=== PATIENT | female | born 1960 ===

== ENCOUNTER 2018-01-09 22:16 | Emergency (ER) | payer MEDICARE, OTHER ==
[2018-01-09 22:23] VITALS: RESP 18; O2SAT 95
--- NOTE | 2018-01-10 00:28 | ED PDOC ---
HPI: Psych/Substance Abuse Time Seen by Provider: 01/09/18 22:19 Chief Complaint (Nursing): Psychiatric Evaluation Chief Complaint (Provider): Psychiatric Evaluation History Per: Patient, EMS History/Exam Limitations: no limitations Onset/Duration Of Symptoms: Days (x1) Current Symptoms Are (Timing): Still Present Additional Complaint(s): 57 y/o female with a past medical history of bipolar disorder, who presents to the ED for a crisis evaluation. Patient is currently a resident at [facility] and had a day pass. Per EMS, family reported she refused to return to [facility], prompting them to call 911. Upon arrival to ED, patient insists she doesn't live at [facility]. Patient also insisting that the person who called 911 claims to be her son and is not. Patient displaying disorganized thought process and appears paranoid. Claims she is compliant with psychiatric medication. Psychiatrist: Dr. Chavarria PMD: Dr. Arora Past Medical History Reviewed: Historical Data, Nursing Documentation, Vital Signs Vital Signs: Last Vital Signs Temp 98.1 F 01/09/18 22:20 Pulse 98 H 01/09/18 22:49 Resp 18 01/09/18 22:20 BP 143/89 01/09/18 22:20 Pulse Ox 95 01/09/18 22:20 - Medical History PMH: Bipolar Disorder, Hypercholesterolemia, Osteoporosis, Schizophrenia Denies: Diabetes, Hepatitis, HIV, HTN, Chronic Kidney Disease, Seizures, Sexually Transmitted Disease - Surgical History Surgical History: - Family History Family History: States: Unknown Family Hx - Social History Current smoker - smoking cessation education provided: No Alcohol: None Drugs: Denies - Home Medications Home Medications: Ambulatory Orders Medication Instructions Recorded Divalproex [Depakoperla WORLEY(*BID*)] 125 mg PO DAILY@1700 tcp 08/28/17 Divalproex [Depakote (*BID*)] 500 mg PO BID tcp 08/28/17 risperiDONE [RisperDAL Tab] 4 mg PO Q12 tab 08/28/17 - Allergies Allergies/Adverse Reactions: Allergies Allergy/AdvReac Type Severity Reaction Status Date / Time No Known Allergies Allergy Verified 01/09/18 22:19 Review of Systems ROS Statement: Except As Marked, All Systems Reviewed And Found Negative Physical Exam - Reviewed Nursing Documentation Reviewed: Yes Vital Signs Reviewed: Yes - Physical Exam Appears: Positive for: Non-toxic, No Acute Distress Head Exam: Positive for: ATRAUMATIC, NORMAL INSPECTION, NORMOCEPHALIC Skin: Positive for: Normal Color, Warm, Dry. Negative for: Rash Eye Exam: Positive for: EOMI, Normal appearance, PERRL Neck: Positive for: Normal, Painless ROM, Supple Cardiovascular/Chest: Positive for: Regular Rate, Rhythm. Negative for: Murmur Respiratory: Positive for: Normal Breath Sounds. Negative for: Respiratory Distress Gastrointestinal/Abdominal: Positive for: Normal Exam, Bowel Sounds, Soft. Negative for: Tenderness Back: Positive for: Normal Inspection. Negative for: L CVA Tenderness, R CVA Tenderness, Vertebral Tenderness Extremity: Positive for: Normal ROM. Negative for: Pedal Edema, Deformity Neurologic/Psych: Positive for: Alert, Oriented, Mood/Affect (colorful, rambling and speaking repetitive statements ). Negative for: Motor/Sensory Deficits - ECG O2 Sat by Pulse Oximetry: 95 (RA) Pulse Ox Interpretation: Normal Medical Decision Making Medical Decision Making: Time: 22:28 Initial Impression: 57 y/o female with possible acute joe in setting of known bipolar Initial Plan: --Crisis evaluation --1:1 --Reevaluation Time: 01:46 Crisis found patient to be stable for discharge. Patient is at her baseline mental status. [facility] be [facility] to [facility]. Scribe Attestation: Documented by Leonard See, acting as a scribe for Marcus Wells MD. Provider Scribe Attestation: All medical record entries made by the Scribe were at my direction and personally dictated by me. I have reviewed the chart and agree that the record accurately reflects my personal performance of the history, physical exam, medical decision making, and the department course for this patient. I have also personally directed, reviewed, and agree with the discharge instructions and disposition. Disposition - Clinical Impression Clinical Impression: Bipolar disorder - Patient ED Disposition Is Patient to be Admitted: No Counseled Patient/Family Regarding: Studies Performed - Disposition Disposition: Discharged to Psych Hospital Disposition Time: 01:46 Condition: STABLE Instructions: Bipolar Disorder Forms: [facility] (Turkish)
[2018-01-10 02:26] VITALS: BP 143/96; PULSE 105; TEMP 98.4
== END 2018-01-10 02:48 ==
LOC: H.ER 22:16
DX: F31.9 Bipolar disorder, unspecified (principal); E78.00 Pure hypercholesterolemia, unspecified; F20.9 Schizophrenia, unspecified; M81.0 Age-related osteoporosis without current pathological fracture